=== PATIENT | female | born 1970 | race Hispanic/Latino ===

== ENCOUNTER 2016-10-12 15:54 | Emergency (ER) | payer MEDICARE ==
--- NOTE | 2016-10-12 16:19 | Emergency Department Report ---
Chief Complaint: Eye Problems Stated Complaint: OPTIC NUERORITIS FLARE UP Time Seen by Provider: 10/12/16 16:17 - HPI History of Present Illness: Patient reports bilateral optic nerve flare-up that started two days ago with a headache - ROS Review of Systems: all other systems are unremarkable except for documentation in HPI - Exam Vital Signs: Vital Signs 10/12/16 16:09 Temperature 98.2 F Pulse Rate 71 Respiratory 18 Rate Blood Pressure 151/92 O2 Sat by Pulse 99 Oximetry Physical Exam: Gen: well nourished, NAD MSE screening note: Focused history and physical exam performed. Due to findings the following was ordered: TBD ED Disposition for MSE Condition: Stable
[2016-10-12 20:26] VITALS: BP 161/106
--- NOTE | 2016-10-12 21:21 | Emergency Department Report ---
ED Eye Problem HPI - General Chief complaint: Eye Problems Stated complaint: OPTIC NUERORITIS FLARE UP Time Seen by Provider: 10/12/16 21:00 Source: patient Mode of arrival: Ambulatory Limitations: No Limitations - History of Present Illness Initial comments: Patient here visiting from across the street at [place]. She is complaining of optic nerve flareup for 2 days. She complains of headache and says she gets migraine headache. She says she has optic nerve neuritis and she doesn't know if it's a flareup. She reports pain to the front of her head 4 out of 10. 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 Denies any nausea vomiting. Denies any injury. Denies any blurred vision. Denies vision loss, eyes pain with movement of her eyes and she is able to c-collars.. chief complaint: other (pain around eyes) Onset/Timin -: days(s) Onset Description: gradual Location: both eyes Place: other (rehabilitation) If Injury: none Eye Symptoms: pain Severity: mild Severity scale (0 -10): 4 Consistency: intermittent Context: other (patient says she has a history of optic nerve neuritis) Associated Symptoms: headache. denies: neck pain, nausea/vomiting, cough, rhinorrhea, fever, shortness of breath Treatments Prior to Arrival: none - Related Data Patient Tetanus UTD: Yes Previous Rx's Medication Instructions Recorded Last Taken Type Butalb/Acetamin/Caff 50-325-40 1 tab PO Q6HR PRN #12 tab 10/12/16 Unknown Rx [Fioricet] Allergies Allergy/AdvReac Type Severity Reaction Status Date / Time acetaminophen [From Tylenol] Allergy Unknown Verified 10/12/16 16:09 divalproex sodium Allergy Unknown Verified 10/12/16 16:09 [From Depakote] escitalopram oxalate Allergy Rash Verified 10/12/16 16:09 [From Lexapro] gluten Allergy Unknown Verified 10/12/16 16:09 haloperidol [From Haldol] Allergy Rash Verified 10/12/16 16:09 haloperidol lactate Allergy Rash Verified 10/12/16 16:09 [From Haldol] lamotrigine [From Lamictal] Allergy Rash Verified 10/12/16 16:09 latex Allergy Rash Verified 10/12/16 16:09 red dye Allergy Unknown Verified 10/12/16 16:09 ED Review of Systems ROS: Stated complaint: OPTIC NUERORITIS FLARE UP Other details as noted in HPI Comment: All other systems reviewed and negative Constitutional: denies: chills, fever Eyes: other (pain around eyes). denies: eye discharge, vision change ENT: denies: ear pain, throat pain, hearing loss, epistaxis, congestion Respiratory: no symptoms reported Cardiovascular: denies: chest pain, palpitations, edema, syncope Musculoskeletal: denies: back pain, arthralgia Skin: denies: rash Neurological: headache. denies: numbness, paresthesias, confusion, abnormal gait, vertigo Psychiatric: denies: anxiety ED Past Medical Hx - Past Medical History Previous Medical History?: Yes Hx Arthritis: Yes Hx Psychiatric Treatment: Yes (substance abuse, bipolar) Hx Asthma: Yes Additional medical history: Fibromyalgia, Optic neurits - Surgical History Past Surgical History?: Yes Hx Cholecystectomy: Yes Hx Appendectomy: Yes Additional Surgical History: left ankle surgery with instrumentation, Randy carpel tunnel surgery, Tonsillectomy - Family History Family history: hypertension - Social History Smoking Status: Current Every Day Smoker Substance Use Type: Alcohol, Prescribed - Medications Home Medications: Home Medications Medication Instructions Recorded Confirmed Last Taken Type Butalb/Acetamin/Caff 50-325-40 1 tab PO Q6HR PRN #12 tab 10/12/16 Unknown Rx [Fioricet] ED Physical Exam - General Limitations: No Limitations General appearance: alert, in no apparent distress - Head Head exam: Present: atraumatic, normocephalic, normal inspection - Expanded Head Exam Expanded Head exam: Absent: laceration, abrasion, contusion, hematoma, racoon eyes, jeffries's sign, general tenderness, tenderness of temporal artery, CSF rhinorrhea , CSF otorrhea - Eye Eye exam: Present: normal appearance, PERRL, EOMI. Absent: scleral icterus, conjunctival injection, nystagmus, periorbital swelling, periorbital tenderness Pupils: Present: normal accommodation - Expanded Eye Exam Expanded Eyelids: Normal Inspection: Left (bilateral) Pupils: Regular, Round: Bilateral, Reactive: Bilateral Sclera/Conjunctival: Normal Inspection: Bilateral Anterior chamber: Normal Inspection: Bilateral Posterior chamber: Normal Inspection: Bilateral Visual acuity (R) = 20/: 40 (20/40 both eyes) Visual acuity (L) = 20/: 50 With correction: Yes - ENT ENT exam: Present: normal exam, normal orophraynx, mucous membranes moist, TM's normal bilaterally, normal external ear exam - Neck Neck exam: Present: normal inspection, full ROM. Absent: tenderness, meningismus, lymphadenopathy - Respiratory Respiratory exam: Present: normal lung sounds bilaterally. Absent: respiratory distress, chest wall tenderness - Cardiovascular Cardiovascular Exam: Present: regular rate, normal rhythm, normal heart sounds - GI/Abdominal GI/Abdominal exam: Present: soft, normal bowel sounds - Extremities Exam Extremities exam: Present: normal inspection, full ROM, normal capillary refill. Absent: tenderness, pedal edema - Back Exam Back exam: Present: normal inspection, full ROM. Absent: tenderness, CVA tenderness (R), CVA tenderness (L), muscle spasm, paraspinal tenderness, vertebral tenderness, rash noted - Neurological Exam Neurological exam: Present: alert, oriented X3, normal gait, reflexes normal. Absent: motor sensory deficit - Expanded Neurological Exam Expanded Neurological exam: Absent: innattentive, memory loss-remote event, memory loss- recent event, ataxia, receptive aphasia, expressive aphasia, total aphasia, tremor, protecting the airway Patient oriented to: Present: person, place, time Speech: Present: fluid speech Cranial nerves: EOM's Intact: Normal, Gag Reflex: Normal, Nystagmus: Normal, Facial Sensation: Normal Cerebellar function: Romberg: Normal Upper motor neuron: Pronator Drift: Normal, Sensory Extinction: Normal Sensory exam: Upper Extremity Light Touch: Normal, Upper Extremity Temperature: Normal, UE 2 Point Discrimination: Normal, Lower Extremity Light Touch: Normal, Lower Extremity Temperature: Normal, LE 2 Point Discrimination: Normal Motor strength exam: RUE: 5, LUE: 5, RLE: 5, LLE: 5 DTR: bicep (R): 2+, bicep (L): 2+, tricep (R): 2+, tricep (L): 2+, knee (R): 2+ , knee (L): 2+, ankle (R): 2+, ankle (L): 2+ Best Eye Response (Darrell): (4) open spontaneously Best Motor Response (Roe): (6) obeys commands Best Verbal Response (Roe): (5) oriented Darrell Total: 15 - Psychiatric Psychiatric exam: Present: normal affect, normal mood - Skin Skin exam: Present: warm, dry, intact, normal color. Absent: rash ED Course Vital Signs 10/12/16 10/12/16 16:09 20:25 Temperature 98.2 F 98.1 F Pulse Rate 71 69 Respiratory 18 18 Rate Blood Pressure 151/92 Blood Pressure 161/106 [Right] O2 Sat by Pulse 99 18 L Oximetry - Reevaluation(s) Reevaluation #1: 10/12/16 21:35 She is stable throughout ED course: ED Medical Decision Making - Medical Decision Making ED course: Patient here complaining of headache. Reports pain 4-10 and said that it seems either her headache or from her optic nerve flareup. She gets migraines. Examination with ophthalmoscope reveals normal exam. To rule out optic nerve neuritis: Patient had no change in vision complaints, no restriction inOcular movement, she is able to identify colors. Pain is located frontal head rather than inside or around her eyes.. Pupils are equal and reactive to light bilaterally. I collaborated with Dr. Roy and patient discharged home with prescription for Fioricet to manage migraine headache and to follow-up with neurology and ophthalmology on Friday. Patient agrees with plan and discharged home with prescription for Fioricet Critical care attestation.: If time is entered above; I have spent that time in minutes in the direct care of this critically ill patient, excluding procedure time. ED Disposition Clinical Impression: Elevated blood pressure (not hypertension) Headache Qualifiers: Headache type: unspecified Headache chronicity pattern: acute headache Intractability: not intractable Qualified Code(s): R51 - Headache Disposition: DISCHARGED TO HOME OR SELFCARE Is pt being admited?: No Does the pt Need Aspirin: No Condition: Stable Instructions: Acute Headache (ED), Hypertension (ED) Additional Instructions: To follow-up with neurology that you were recommended to him discharge paperwork Please follow up with feller seam operator as recommended and discharge per report. If you develop decreasing vision, restricted movement in the eyes, pain or any eyes please return to emergency room [facility]. Your blood pressure was elevated today so please her blood pressure not elevated basis and follow-up with primary care physician for further evaluation and treatment. Prescriptions: Butalb/Acetamin/Caff 50-325-40 [Fioricet] 1 tab PO Q6HR PRN #12 tab PRN Reason: Headache Referrals: PRIYANKA ROMERO MD [Staff Physician] - 10/14/16 JAYLENE GRAVES MD [Staff Physician] - 10/14/16 [facility] [Outside] - 2-3 Days
== END 2016-10-12 21:49 | disposition home or self-care (01) ==
LOC: ED 15:54
DX: R51 Headache (principal); R03.0 Elevated blood-pressure reading, without diagnosis of hypertension; M19.90 Unspecified osteoarthritis, unspecified site; J45.909 Unspecified asthma, uncomplicated; F17.200 Nicotine dependence, unspecified, uncomplicated; Z88.6 Allergy status to analgesic agent; Z88.8 Allergy status to other drugs, medicaments and biological substances; Z88.9 Allergy status to unspecified drugs, medicaments and biological substances; Z91.040 Latex allergy status
CPT/HCPCS: 99282

== ENCOUNTER 2016-10-17 15:36 | Outpatient (CLI) | payer MEDICARE | END 2016-10-17 15:37 | disposition home or self-care (01) | LOC: LAB 15:36 | PROVIDERS: ATTEND Clinical Nurse Specialist Psychiatric/Mental Health | DX: F25.9 Schizoaffective disorder, unspecified (principal) | CPT/HCPCS: 36415; 84702 ==

== ENCOUNTER 2016-10-18 09:25 | Emergency (ER) | payer MEDICARE ==
[2016-10-18 09:45] VITALS: BP 139/88
[2016-10-18] MEDS ORDERED: ZOFRAN ODT PO ONE (12:37)
[2016-10-18 12:59] LABS: Basophils % (Auto) 0.2 % (0.0-1.8); Eosinophils % (Auto) 1.4 % (0.0-4.3); Hematocrit 43.2 % (30.3-42.9); Hemoglobin 14.2 gm/dl (10.1-14.3); Mean Corpuscular HGB Conc 33 % (30-34); Mean Corpuscular Hemoglobin 30 pg (28-32); Mean Corpuscular Volume 90 fl (79-97); Platelet Count 252 K/mm3 (140-440); Red Blood Count 4.82 M/mm3 (3.65-5.03); Red Cell Distribution Width 14.8 % (13.2-15.2); White Blood Count 12.6 K/mm3 (4.5-11.0)
[2016-10-18 13:09] LABS: Blood Urea Nitrogen 15 mg/dL (7-17); Carbon Dioxide 22 mmol/L (22-30); Glucose 95 mg/dL (65-100); Potassium 4.5 mmol/L (3.6-5.0); Sodium 140 mmol/L (137-145)
[2016-10-18 13:12] LABS: Anion Gap 19 mmol/L
[2016-10-18 13:18] LABS: Bilirubin,Urine NEG (Negative); Blood,Urine NEG (Negative); Ketones,Urine NEG (Negative); Leukocyte Esterase,Urine TR (Negative); Mucus,Urine FEW /HPF; Nitrite,Urine NEG (Negative); Protein,Urine <15 mg/dL mg/dL (Negative)
[2016-10-18 13:42] LABS: Amylase 26 units/L (27-131); Lipase 16 units/L (13-60)
[2016-10-18 13:46] LABS: Alanine Aminotransferase 17 units/L (7-56); Albumin 4.1 g/dL (3.9-5); Albumin/Globulin Ratio 1.2 %; Alkaline Phosphatase 110 units/L (35-129); Bilirubin,Direct < 0.2 mg/dL (0-0.2); Bilirubin,Total 0.3 mg/dL (0.1-1.2); Total Protein 7.6 g/dL (6.3-8.2)
== END 2016-10-18 15:54 | disposition home or self-care (01) ==
LOC: ED 09:25
DX: R11.2 Nausea with vomiting, unspecified (principal)
CPT/HCPCS: 36415; 80048; 80074; 81001; 81025; 82150; 83690; 84702; 85025; 87086; 87210; 87591; 99283; Q0162

== ENCOUNTER 2016-11-13 12:18 | Emergency (ER) | payer MEDICARE ==
[2016-11-13 13:08] LABS: Basophils % (Auto) 0.2 % (0.0-1.8); Eosinophils % (Auto) 1.3 % (0.0-4.3); Hematocrit 39.4 % (30.3-42.9); Hemoglobin 12.9 gm/dl (10.1-14.3); Mean Corpuscular HGB Conc 33 % (30-34); Mean Corpuscular Hemoglobin 29 pg (28-32); Mean Corpuscular Volume 90 fl (79-97); Platelet Count 249 K/mm3 (140-440); Red Blood Count 4.39 M/mm3 (3.65-5.03); Red Cell Distribution Width 15.1 % (13.2-15.2); White Blood Count 12.7 K/mm3 (4.5-11.0)
[2016-11-13 13:29] LABS: Anion Gap 18 mmol/L; Blood Urea Nitrogen 14 mg/dL (7-17); Carbon Dioxide 22 mmol/L (22-30); Chloride 102.9 mmol/L (98-107); Glucose 84 mg/dL (65-100); Potassium 3.8 mmol/L (3.6-5.0); Sodium 139 mmol/L (137-145)
[2016-11-13] MEDS ORDERED: ZOFRAN IV ONE (16:27)
[2016-11-13] MEDS ORDERED: MORPHINE IV ONE (16:27)
--- NOTE | 2016-11-13 16:32 | Emergency Department Report ---
HPI - General Chief Complaint: Chest Pain Time Seen by Provider: 11/13/16 16:16 - HPI HPI: Patient here reported chest pain and shortness of breath that started this morning. She says that she has a history of pulmonary embolism in 2009. Stated that she has had a cough for 3 weeks. She is also complaining the dizziness and feels like her ears are clogged. Pain is elicited with tenderness located to the midsternal area. She denies any history of heart disease, lung disease. She denies any fever or chills. Denies any nausea vomiting or diarrhea. Denies any abdominal or back pain. Denies taking control, long distance travel by car or airplane or any recent surgery. Patient is a resident at [facility] currently. ED Past Medical Hx - Past Medical History Previous Medical History?: Yes Hx Arthritis: Yes Hx Psychiatric Treatment: Yes (substance abuse, bipolar) Hx Asthma: Yes Hx Tuberculosis: Yes Additional medical history: Fibromyalgia, Optic neurits - Surgical History Past Surgical History?: Yes Hx Cholecystectomy: Yes Hx Appendectomy: Yes Additional Surgical History: left ankle surgery with instrumentation, Randy carpel tunnel surgery, Tonsillectomy - Family History Family history: hypertension - Social History Smoking Status: Current Every Day Smoker Substance Use Type: None - Medications Home Medications: Home Medications Medication Instructions Recorded Confirmed Last Taken Type Butalb/Acetamin/Caff 50-325-40 1 tab PO Q6HR PRN #12 tab 10/12/16 Unknown Rx [Fioricet] Ibuprofen [Motrin] 600 mg PO Q8H PRN #30 tablet 10/18/16 Unknown Rx Ondansetron [Zofran Odt] 4 mg PO Q8HR PRN #20 tab.rapdis 10/18/16 Unknown Rx Azithromycin [Zithromax Z-MAXIMILIAN] 250 mg PO DAILY #6 tab 11/13/16 Unknown Rx Fluticasone [Flonase] 1 spray NS QDAY #1 bottle 11/13/16 Unknown Rx Loratadine [Claritin] 10 mg PO DAILY #10 tablet 11/13/16 Unknown Rx guaiFENesin/CODEINE [Robitussin AC] 5 ml PO TID PRN #70 ml 11/13/16 Unknown Rx ED Review of Systems ROS: Stated complaint: CHEST PAIN Other details as noted in HPI Physical Exam - Physical Exam Vital Signs: Vital Signs 11/13/16 11/13/16 11/13/16 12:35 15:14 15:15 Temperature 97.7 F Pulse Rate 81 82 93 H Respiratory 18 12 16 Rate Blood Pressure 131/71 132/72 O2 Sat by Pulse 100 98 97 Oximetry 11/13/16 15:21 Temperature Pulse Rate Respiratory 18 Rate Blood Pressure O2 Sat by Pulse 100 Oximetry ED Course Vital Signs 11/13/16 11/13/16 11/13/16 12:35 15:14 15:15 Temperature 97.7 F Pulse Rate 81 82 93 H Respiratory 18 12 16 Rate Blood Pressure 131/71 132/72 O2 Sat by Pulse 100 98 97 Oximetry 11/13/16 15:21 Temperature Pulse Rate Respiratory 18 Rate Blood Pressure O2 Sat by Pulse 100 Oximetry Vital Signs 11/13/16 11/13/16 11/13/16 12:35 15:14 15:15 Temperature 97.7 F Pulse Rate 81 82 93 H Respiratory 18 12 16 Rate Blood Pressure 131/71 132/72 O2 Sat by Pulse 100 98 97 Oximetry 11/13/16 11/13/16 11/13/16 15:21 15:37 15:39 Temperature Pulse Rate 70 70 Respiratory 18 15 17 Rate Blood Pressure 132/72 132/72 O2 Sat by Pulse 100 96 96 Oximetry 11/13/16 11/13/16 11/13/16 15:41 15:43 15:45 Temperature Pulse Rate 70 68 67 Respiratory 12 12 12 Rate Blood Pressure 132/72 132/72 132/72 O2 Sat by Pulse 96 97 97 Oximetry 11/13/16 11/13/16 11/13/16 15:47 15:49 15:51 Temperature Pulse Rate 75 66 70 Respiratory 15 13 12 Rate Blood Pressure 132/72 132/72 132/72 O2 Sat by Pulse 96 96 96 Oximetry 11/13/16 11/13/16 11/13/16 15:53 15:54 15:55 Temperature Pulse Rate 68 70 71 Respiratory 27 H 24 19 Rate Blood Pressure 132/72 132/72 O2 Sat by Pulse 97 97 99 Oximetry 11/13/16 11/13/16 11/13/16 15:57 15:59 16:00 Temperature Pulse Rate 83 69 68 Respiratory 25 H 20 13 Rate Blood Pressure 132/72 132/72 133/89 O2 Sat by Pulse 96 98 96 Oximetry 11/13/16 11/13/1617 16:01 16:03 16:05 Temperature Pulse Rate 71 69 70 Respiratory 12 12 12 Rate Blood Pressure 133/89 133/89 133/89 O2 Sat by Pulse 98 98 98 Oximetry 11/13/16 11/13/16 11/13/16 16:07 16:09 16:11 Temperature Pulse Rate 70 68 72 Respiratory 14 10 L 17 Rate Blood Pressure 133/89 133/89 133/89 O2 Sat by Pulse 96 98 96 Oximetry 11/13/16 11/13/16 11/13/16 16:13 16:15 16:17 Temperature Pulse Rate 77 64 60 Respiratory 12 14 14 Rate Blood Pressure 133/89 133/89 132/72 O2 Sat by Pulse 97 97 99 Oximetry 11/13/16 11/13/16 11/13/16 16:19 16:21 16:23 Temperature Pulse Rate 61 67 68 Respiratory 13 16 16 Rate Blood Pressure 132/72 132/72 132/72 O2 Sat by Pulse 97 95 96 Oximetry 11/13/16 11/13/16 11/13/16 16:25 16:27 16:29 Temperature Pulse Rate 66 65 66 Respiratory 15 12 16 Rate Blood Pressure 132/72 132/72 132/72 O2 Sat by Pulse 98 97 97 Oximetry 11/13/16 11/13/16 11/13/16 16:31 16:33 16:35 Temperature Pulse Rate 65 68 72 Respiratory 15 13 14 Rate Blood Pressure 132/72 132/72 132/72 O2 Sat by Pulse 97 96 97 Oximetry 11/13/16 11/13/16 11/13/16 16:37 16:39 16:41 Temperature Pulse Rate 66 67 72 Respiratory 17 16 17 Rate Blood Pressure 132/72 132/72 132/72 O2 Sat by Pulse 97 97 97 Oximetry 11/13/16 11/13/16 11/13/16 16:43 16:45 16:47 Temperature Pulse Rate 66 70 65 Respiratory 12 11 L 13 Rate Blood Pressure 132/72 132/72 132/72 O2 Sat by Pulse 98 97 96 Oximetry 11/13/16 11/13/16 11/13/16 16:49 16:51 16:53 Temperature Pulse Rate 65 61 59 L Respiratory 14 11 L 16 Rate Blood Pressure 132/72 132/72 132/72 O2 Sat by Pulse 99 96 98 Oximetry 11/13/16 11/13/16 11/13/16 16:55 16:57 16:59 Temperature Pulse Rate 60 59 L 66 Respiratory 12 11 L 11 L Rate Blood Pressure 132/72 132/72 132/72 O2 Sat by Pulse 98 98 99 Oximetry 11/13/16 11/13/16 11/13/16 17:01 17:03 17:05 Temperature Pulse Rate 59 L 59 L 60 Respiratory 15 14 13 Rate Blood Pressure 147/97 147/97 147/97 O2 Sat by Pulse 98 95 97 Oximetry 11/13/16 11/13/16 11/13/16 17:07 17:09 17:10 Temperature Pulse Rate 61 60 60 Respiratory 13 13 13 Rate Blood Pressure 147/97 147/97 147/97 O2 Sat by Pulse 97 96 96 Oximetry 11/13/16 11/13/16 11/13/16 17:22 17:23 17:25 Temperature Pulse Rate 60 61 Respiratory 14 13 Rate Blood Pressure 147/97 147/97 147/97 O2 Sat by Pulse 94 99 97 Oximetry 11/13/16 11/13/16 11/13/16 17:27 17:29 17:31 Temperature Pulse Rate 61 63 61 Respiratory 12 12 11 L Rate Blood Pressure 147/97 147/97 147/97 O2 Sat by Pulse 98 98 97 Oximetry 11/13/16 11/13/16 11/13/16 17:33 17:35 17:37 Temperature Pulse Rate 61 61 61 Respiratory 13 17 11 L Rate Blood Pressure 147/97 147/97 147/97 O2 Sat by Pulse 98 97 98 Oximetry 11/13/16 11/13/16 11/13/16 17:39 17:41 17:43 Temperature Pulse Rate 60 64 69 Respiratory 11 L 12 11 L Rate Blood Pressure 147/97 147/97 147/97 O2 Sat by Pulse 99 97 98 Oximetry 11/13/16 11/13/16 11/13/16 17:45 17:47 17:49 Temperature Pulse Rate 60 61 61 Respiratory 13 12 11 L Rate Blood Pressure 147/97 147/97 147/97 O2 Sat by Pulse 97 98 98 Oximetry 11/13/16 11/13/16 11/13/16 17:51 17:53 17:55 Temperature Pulse Rate 61 63 63 Respiratory 14 12 12 Rate Blood Pressure 147/97 147/97 147/97 O2 Sat by Pulse 98 98 98 Oximetry 02/11/13/16 11/13/16 17:57 17:59 18:00 Temperature Pulse Rate 66 60 62 Respiratory 16 12 13 Rate Blood Pressure 147/97 147/97 147/87 O2 Sat by Pulse 99 99 99 Oximetry 11/13/16 11/13/16 11/13/16 18:01 18:03 18:05 Temperature Pulse Rate 61 61 61 Respiratory 14 13 11 L Rate Blood Pressure 147/87 147/87 147/87 O2 Sat by Pulse 99 98 98 Oximetry 11/13/16 18:07 Temperature Pulse Rate 62 Respiratory 9 L Rate Blood Pressure 147/87 O2 Sat by Pulse 97 Oximetry - Reevaluation(s) Reevaluation #1: 11/13/16 18:13 Patient stable. Reevaluation #2: 11/13/16 18:21 Patient given Zofran 4 mg IV, morphine 4 mg IV for pain which she says has pain relief. She was given Benadryl 25mg iv she had minor allergic reaction localized to the skin from morphine. Chest pain has resolved. Patient says she is feeling better. 11/13/16 18:22 11/13/16 18:29 ED Medical Decision Making - Lab Data Result diagrams: 11/13/16 12:55 11/13/16 12:55 Lab Results 11/13/16 11/13/16 11/13/16 Range/Units 12:55 12:55 12:55 WBC 12.7 H (4.5-11.0) K/mm3 RBC 4.39 (3.65-5.03) M/mm3 Hgb 12.9 (10.1-14.3) gm/dl Hct 39.4 (30.3-42.9) % MCV 90 (79-97) fl MCH 29 (28-32) pg MCHC 33 (30-34) % RDW 15.1 (13.2-15.2) % Plt Count 249 (140-440) K/mm3 Lymph % (Auto) 18.5 (13.4-35.0) % Posey % (Auto) 9.6 H (0.0-7.3) % Eos % (Auto) 1.3 (0.0-4.3) % Baso % (Auto) 0.2 (0.0-1.8) % Lymph # 2.3 (1.2-5.4) K/mm3 Posey # 1.2 H (0.0-0.8) K/mm3 Eos # 0.2 (0.0-0.4) K/mm3 Baso # 0.0 (0.0-0.1) K/mm3 Seg Neutrophils % 70.4 H (40.0-70.0) % Seg Neutrophils # 8.9 H (1.8-7.7) K/mm3 PT (12.2-14.9) Sec. INR (0.87-1.13) APTT (24.2-36.6) Sec. D-Dimer 393.45 H (0-234) ng/mlDDU Sodium 139 (137-145) mmol/L Potassium 3.8 (3.6-5.0) mmol/L Chloride 102.9 (98-107) mmol/L Carbon Dioxide 22 (22-30) mmol/L Anion Gap 18 mmol/L BUN 14 (7-17) mg/dL Creatinine 0.5 L (0.7-1.2) mg/dL Estimated GFR > 60 ml/min BUN/Creatinine Ratio 28.00 % Glucose 84 (65-100) mg/dL Calcium 11.0 H (8.4-10.2) mg/dL Troponin T < 0.010 (0.00-0.029) ng/mL HCG, Qual (Negative) 11/13/16 11/13/16 11/13/16 Range/Units 14:51 16:37 16:37 WBC (4.5-11.0) K/mm3 RBC (3.65-5.03) M/mm3 Hgb (10.1-14.3) gm/dl Hct (30.3-42.9) % MCV (79-97) fl MCH (28-32) pg MCHC (30-34) % RDW (13.2-15.2) % Plt Count (140-440) K/mm3 Lymph % (Auto) (13.4-35.0) % Posey % (Auto) (0.0-7.3) % Eos % (Auto) (0.0-4.3) % Baso % (Auto) (0.0-1.8) % Lymph # (1.2-5.4) K/mm3 Posey # (0.0-0.8) K/mm3 Eos # (0.0-0.4) K/mm3 Baso # (0.0-0.1) K/mm3 Seg Neutrophils % (40.0-70.0) % Seg Neutrophils # (1.8-7.7) K/mm3 PT 12.6 (12.2-14.9) Sec. INR 0.95 (0.87-1.13) APTT 29.2 (24.2-36.6) Sec. D-Dimer (0-234) ng/mlDDU Sodium (137-145) mmol/L Potassium (3.6-5.0) mmol/L Chloride (98-107) mmol/L Carbon Dioxide (22-30) mmol/L Anion Gap mmol/L BUN (7-17) mg/dL Creatinine (0.7-1.2) mg/dL Estimated GFR ml/min BUN/Creatinine Ratio % Glucose (65-100) mg/dL Calcium (8.4-10.2) mg/dL Troponin T < 0.010 (0.00-0.029) ng/mL HCG, Qual Negative (Negative) - EKG Data EKG shows normal: sinus rhythm - EKG Data Interpretation: no acute changes - Radiology Data Radiology results: report reviewed CTA chest reveals no evidence of PE. Small pericardial effusion noted. Lungs are clear with no acute cardiopulmonary processes. - Medical Decision Making ED course: Patient presented to the ER for chest pain and shortness of breath and concern for pulmonary embolism she says she had in 2009. Patient reports that she had a cough for 3 weeks. Dizziness. I discussed the patient that her CT scan of lungs showed no pulmonary embolism and no pneumonia. I discussed with her that she has upper respiratory tract infection and since she is been having cough for 3 weeks. Since she has been having cough 3 weeks On antibiotic, Flonase and Claritin. She says she is feeling a lot better and ready to go. Awaiting Transport back to avoid facility. Patient given prescription for Zithromax, Flonase, guaifenesin with codeine and Claritin. - Differential Diagnosis PE, PNA, OR, upper respiratory tract infection, viral vs bacterial infect Critical care attestation.: If time is entered above; I have spent that time in minutes in the direct care of this critically ill patient, excluding procedure time. ED Disposition Clinical Impression: Cough, Chest pain, atypical Upper respiratory tract infection Qualifiers: URI type: unspecified URI Qualified Code(s): J06.9 - Acute upper respiratory infection, unspecified Disposition: DISCHARGED TO HOME OR SELFCARE Is pt being admited?: No Does the pt Need Aspirin: No Condition: Stable Instructions: Chest Pain (ED), Acute Cough (ED), Upper Respiratory Infection ( ED) Additional Instructions: Please increase her fluid intake Follow up with your primary care physician in 2 days Cough was will cause drowsiness so please do not drive or operate any heavy machinery. Prescriptions: Azithromycin [Zithromax Z-MAXIMILIAN] 250 mg PO DAILY #6 tab Fluticasone [Flonase] 1 spray NS QDAY #1 bottle guaiFENesin/CODEINE [Robitussin AC] 5 ml PO TID PRN #70 ml PRN Reason: Cough Loratadine [Claritin] 10 mg PO DAILY #10 tablet Referrals: PRIMARY CARE, [Primary Care Provider] - 3-5 Days
[2016-11-13] MEDS ORDERED: BENADRYL ONE (16:46)
[2016-11-13] MEDS ORDERED: BENADRYL IV ONE (16:55)
[2016-11-13 17:02] LABS: INR 0.95 (0.87-1.13)
[2016-11-13 17:03] LABS: Partial Thromboplastin Time 29.2 Sec. (24.2-36.6)
[2016-11-13] MEDS ORDERED: NACL ONE (17:09)
--- NOTE | 2016-11-13 17:49 | Cat Scan Report ---
FINAL REPORT EXAM: CT ANGIO CHEST HISTORY: cp sob TECHNIQUE: CT chest CT angiogram with reconstructions PRIORS: None. FINDINGS: There is no evidence of filling defect within the central pulmonary vasculature to suggest the presence of acute pulmonary embolus. No evidence of mediastinal pathologic lymph node enlargement There is small pericardial effusion. The aorta is normal in caliber. No focal pulmonary infiltrate identified. No pleural fluid collection seen. No acute pulmonary abnormality noted. Visualized portion of the upper abdomen demonstrates no acute change. IMPRESSION: Small pericardial effusion No CT evidence of acute pulmonary embolus
[2016-11-13 19:32] VITALS: BP 138/86
== END 2016-11-13 19:32 | disposition home or self-care (01) ==
LOC: ED 12:18
DX: R07.89 Other chest pain (principal); R05 Cough; J06.9 Acute upper respiratory infection, unspecified; M19.90 Unspecified osteoarthritis, unspecified site; J45.909 Unspecified asthma, uncomplicated; F31.9 Bipolar disorder, unspecified; F17.200 Nicotine dependence, unspecified, uncomplicated; Z88.6 Allergy status to analgesic agent; Z88.8 Allergy status to other drugs, medicaments and biological substances
CPT/HCPCS: 36415; 71275; 80048; 84484; 84703; 85025; 85379; 85610; 85730; 93005; 93010; 96374; 96375; 99285; J1200; J2270; J2405; Q9967

== ENCOUNTER 2016-11-20 20:09 | Emergency (ER) | payer MEDICARE ==
[2016-11-20 21:49] VITALS: BP 148/96
--- NOTE | 2016-11-21 08:53 | XRay Report ---
RIGHT ELBOW: The bony architecture is intact without evidence of fracture or dislocation. No significant soft tissue abnormality is seen. IMPRESSION: Normal right elbow.
--- NOTE | 2016-11-21 08:53 | XRay Report ---
RIGHTWRIST: Routine views demonstrate the carpal bones to be well mineralized with well preserved bony mineralization and interosseous joint spaces. The carpal and adjacent articular bones have normal contours. The surrounding soft tissues are unremarkable. IMPRESSION: Normal study.
--- NOTE | 2016-11-21 08:55 | XRay Report ---
RIGHT SHOULDER: Routine views demonstrate normal bony and soft tissue structures with normal joint alignment of the shoulder. IMPRESSION: Normal study.
--- NOTE | 2016-11-21 08:55 | XRay Report ---
RIGHT HAND: The bony architecture is intact. Bony alignment is normal. No soft tissue abnormalities are seen. The joint spaces appear preserved. IMPRESSION: Normal right hand.
--- NOTE | 2016-11-23 18:57 | ED Elopement Review ---
ED Pt Elopement review - Call Back decision Pt Call Back Decision: Pt to F/U with PMD
== END 2016-11-20 23:10 | disposition left against medical advice (07) ==
LOC: ED 20:09
DX: R25.2 Cramp and spasm (principal); W19.XXXA Unspecified fall, initial encounter; Z53.21 Procedure and treatment not carried out due to patient leaving prior to being seen by health care provider